=== PATIENT | female | born 1950 | race Caucasian/White ===

== ENCOUNTER 2017-04-06 05:50 | Day surgery (SDC) | payer MEDICARE, BC ==
[2017-04-06] MEDS ORDERED: fentaNYL 100 MCG/2 ML SDV IV ONE (05:51)
[2017-04-06] MEDS ORDERED: Midazolam 1 MG/ML 2 ML SDV IV ONE (05:51)
[2017-04-06] MEDS ORDERED: ePHEDrine 50 MG/ML SDV IV ONE (05:51)
[2017-04-06] MEDS ORDERED: Propofol 200 MG/20 ML SDV IV ONE (05:51)
[2017-04-06] MEDS ORDERED: Dexamethasone 4 MG/ML SDV IV ONE (05:51)
[2017-04-06] MEDS ORDERED: Ketorolac 30 MG/ML SDV IVPUSH ONE (05:51)
[2017-04-06] MEDS ORDERED: Bupivacaine 0.5% 10 ML SDV INJECT ONE ×3 (05:51→09:23)
[2017-04-06] MEDS ORDERED: Ondansetron 4 MG/2 ML SDV IV ONE (05:51)
[2017-04-06] MEDS ORDERED: Lidocaine 1% 30 ML SDV INJECT ONE ×3 (05:51→09:23)
[2017-04-06] MEDS ORDERED: Sodium Chloride 0.9% 10 ML Syringe FLUSH PRN ×2 (06:30)
[2017-04-06] MEDS ORDERED: ceFAZolin 1 GM in Premix Bag 1 BAG IV ONE (06:30)
[2017-04-06] MEDS ORDERED: Lactated Ringers 1,000 ML IV SCH (06:30)
[2017-04-06] MEDS ORDERED: Bupivacaine 0.5% 10 ML SDV ONE (06:55)
[2017-04-06] MEDS ORDERED: Lidocaine 1% 30 ML SDV ONE (06:55)
[2017-04-06] MEDS ORDERED: Midazolam 1 MG/ML 2 ML SDV ONE (06:58)
[2017-04-06] MEDS ORDERED: Dexamethasone 4 MG/ML SDV ONE (06:58)
[2017-04-06] MEDS ORDERED: Ketorolac 30 MG/ML SDV ONE (06:58)
[2017-04-06] MEDS ORDERED: Propofol 200 MG/20 ML SDV ONE (06:58)
[2017-04-06] MEDS ORDERED: Ondansetron 4 MG/2 ML SDV ONE (06:58)
[2017-04-06] MEDS ORDERED: fentaNYL 100 MCG/2 ML SDV ONE ×2 (06:58→07:14)
[2017-04-06] MEDS ORDERED: Acetaminophen/oxyCODONE 325-5 MG Tab PO PRN (09:48)
--- NOTE | 2017-04-06 09:52 | PCM.OPNOTE ---
- General Post-Op/Procedure Note Date of Surgery/Procedure: 04/06/17 Operative Procedure(s): right foot 1st MTPJ arthrodesis Pre Op Diagnosis: right foot hallux varus Post-Op Diagnosis: hilda with arthritis Anesthesia Technique: General LMA Secondary Surgeon: Marilou Dennis Anesthesia Provider: Jose Plaza EBL in mLs: 5 Complications: none Condition: Good Free Text/Narrative:: Pt tolerated procedure well and was transported to recovery with vascular status intact to right foot. TT 102 mins. lakeisha 3.0 cannulated screws at fusion site. Well padded L&U splint applied.
--- NOTE | 2017-04-06 21:36 | OR ---
DATE: 04/06/2017 PREOPERATIVE DIAGNOSIS: Right foot painful hallux varus deformity. POSTOPERATIVE DIAGNOSIS: Right foot painful hallux varus deformity. PROCEDURE PERFORMED: Right foot 1st metatarsophalangeal joint arthrodesis. ANESTHESIA: General LMA with preoperative local block of 10 mL of 1:1 mixture of 1% lidocaine plain and 0.5% Marcaine plain. TOURNIQUET TIME: 102 minutes with pneumatic ankle tourniquet. ESTIMATED BLOOD LOSS: Minimal. SPECIMEN: None. COMPLICATIONS: None. INDICATIONS: Soledad is a 67-year-old, female, who returns for right great toe pain and deformity. I have seen her a few different times now for this issue. We have tried carbon graphite inserts in her shoe to help stabilize that joint, she does wear these in a regular tennis shoe and it helps some. However, she is still having pain. She does get pain to that toe joint and feels a pop in and out when she is walking. It is now starting to spread to the rest of her forefoot, where she also gets some swelling. We have also tried an injection into that joint which helped for approximately 6 weeks. X-rays of the right foot weightbearing views reveal a hallux varus deformity with the hallux partially subluxed medially with a varus angulation of approximately 24 degrees. Some mild spurring at the dorsal aspect of the joint. The patient voiced good understanding of the proposed procedure and possible complications and elects to have surgery at this time. We did discuss soft tissue procedure versus arthrodesis if needed and she agrees to both procedures as needed. DESCRIPTION OF THE PROCEDURE: The patient was taken to the operating room, lying in the supine position. After adequate anesthesia induction as described above, the right foot was prepped and draped in the usual sterile fashion. A pneumatic ankle tourniquet was inflated to 225 mmHg. Attention was then directed to the dorsal aspect of the 1st metatarsophalangeal joint, where an approximately 5 cm linear incision was made overlying the joint. Sharp and blunt dissection were performed down to the level of the joint capsule with care to retract all neurovascular bundles. A linear capsulotomy was made and the capsule was sharply and bluntly dissected free from its attachments to the distal 1st metatarsal and base of the proximal phalanx. At this point, the joint was examined and there was noted to be significant amount of cartilaginous defect at the medial aspect where that joint was popping out. I did try to hold that toe in a neutral position on the great toe joint and simulated weightbearing, and there was only approximately 10 degrees of range of motion when I did this. It was determined at that time that an arthrodesis was needed for this varus deformity. All articular cartilage was then removed from the 1st metatarsal head and the base of the proximal phalanx using a bur and a curette. The joint was then drilled with a 0.062 inch K-wire to subchondral bone as well as an osteotome was used to fenestrate to help with the fusion. The hallux was then positioned on the 1st metatarsal head while loading the foot and temporary fixation was used using a 0.062 inch K-wire. Fluoroscopy was then used to verify proper positioning of the hallux on the 1st metatarsal with the proper amount of valgus angulation as well as approximately 15 to 20 degrees of dorsiflexion. Two 3.0 [place] cannulated screws were then inserted in a crossing fashion across the joint. The temporary fixation was removed and it was noted that the hallux was in near anatomic alignment and in stable fashion with axial and varus forces applied. Fluoroscopy was then again used to verify proper positioning of the screws as well as the hallux. The area was then irrigated with copious amounts of sterile saline. Capsular closure was completed with 3-0 Vicryl and skin closure was completed with 4-0 nylon. The area was then dressed with Xeroform to the incision site, fluffs, Webril, and a well-padded L and U splint with the foot in neutral was applied. The patient tolerated the procedure and anesthesia well and left the operating room for recovery with vital signs stable in good condition with vascular status intact to the right foot as noted by immediate hyperemia to all digits upon deflation of the ankle tourniquet. The patient was then discharged to home when she met hospital discharge requirements. [facility] /[id number]
== END 2017-04-06 11:20 | disposition home or self-care (01) ==
LOC: DL.SDS 05:50
PROVIDERS: ATTEND Podiatrist
DX: M20.11 Hallux valgus (acquired), right foot (principal); E03.9 Hypothyroidism, unspecified; Z79.899 Other long term (current) drug therapy; Z98.890 Other specified postprocedural states
CPT/HCPCS: 01480; 28750; C1713; J0690; J1100; J1885; J2250; J2405; J2704; J3010; J7120

== ENCOUNTER → 2017-10-12 | Day surgery (SDC) | payer MEDICARE, BC ==
[~2017-10-12] MED LIST: Bupivacaine 0.5% 30 ML SDV INJECT ONE; Bupivacaine 0.5% 30 ML SDV ONE; Dexamethasone 4 MG/ML SDV IV ONE; Ketorolac 30 MG/ML SDV IVPUSH ONE; Lactated Ringers 1,000 ML IV SCH; Lidocaine 1% 30 ML SDV INJECT ONE; Lidocaine 1% 30 ML SDV ONE; Midazolam 1 MG/ML 2 ML SDV IV ONE; Ondansetron 4 MG/2 ML SDV IV ONE; Propofol 200 MG/20 ML SDV IV ONE; Sodium Chloride 0.9% 10 ML Syringe FLUSH PRN; ceFAZolin 1 GM in Premix Bag 1 BAG IV ONE; fentaNYL 100 MCG/2 ML SDV IV ONE
--- NOTE | 2017-10-12 16:17 | PCM.OPNOTE ---
- General Post-Op/Procedure Note Date of Surgery/Procedure: 10/12/17 Operative Procedure(s): Right foot hardware removal with 1st MTPJ non union revision and bone graft placement Pre Op Diagnosis: Right foot painful hardware with non union 1st MTPJ Post-Op Diagnosis: hilda Anesthesia Technique: Local, MAC Primary Surgeon: Marilou Dennis Anesthesia Provider: Jose Plaza EBL in mLs: 10 Complications: none Condition: Good Free Text/Narrative:: Intake & Output 10/12/17 10/12/17 10/12/17 06:59 14:59 22:59 Intake Total 720 Balance 720 Pt tolerated procedure well and was transported to recovery with vascular status intact to right foot. lakeisha 3.5 locking and non locking screw with 1st MTPJ pre-bent plate applied with toe in slight dorsiflexion with bone allograft applied to joint and joint defect. Well padded L&U splint applied with foot in neutral. Pt to be NWB in splint.
--- NOTE | 2017-10-13 16:04 | OR ---
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 ANESTHESIA: Local MAC with preoperative local block of 10 mL of 1:1 mixture of 1% lidocaine plain with 0.5% Marcaine plain. TOURNIQUET TIME: 110 minutes of pneumatic ankle tourniquet. ESTIMATED BLOOD LOSS: Minimal. SPECIMEN: None. COMPLICATIONS: None. INDICATIONS: Soledad is a 67-year-old female who is over 6 months status post right foot 1st metatarsophalangeal joint fusion, date of surgery is April 06, 2017. I had not seen her since her 1st postoperative visit, where she was doing very well, she was wearing the CAM boot and not using her crutches at that time. States she was walking on her heel only. She did transition herself back into regular shoes. She states she really has not been having much pain; however, she does have tenderness to that joint area and it always seems hot. It is causing her to limp and seems causing some balance issues as well. X-rays, three-views, of the right foot reveal 2 screws to the 1st MTPJ with lucency around the screws and some movement of the screws since postoperative images, there is a lucent defect in the bone at the area where the screws are crossing and the toe looks like it has lost some of its position. The patient voiced good understanding of proposed procedure and possible complications and elects to have surgery at this time. DESCRIPTION OF PROCEDURE: The patient was taken to the operating room, lying in supine position. After adequate anesthesia induction as described above, the right foot was prepped and draped in the usual sterile fashion. A pneumatic ankle tourniquet was inflated to 225 mmHg. Attention was then directed to the right foot dorsal 1st metatarsophalangeal joint where an approximately 6 cm linear incision was made. Sharp and blunt dissection were made down to the level of the joint capsule with all neurovascular bundles identified and retracted. A linear capsulotomy was made and the capsule was sharply dissected from the 1st metatarsophalangeal joint. The joint was visualized and a nonunion was present in this area. Inflamed tissue was also present to this area and it was debrided. The screws were removed at this time. The joint was opened and all nonunion/fibrotic tissue was removed from the joint. There was noted to be a large defect at both head of the 1st metatarsal and the base of the proximal phalanx, which was also filled with fibrotic tissue, this was cleaned out with a curette and rongeur. The 1st metatarsophalangeal joint was then again curettaged to good bleeding bone. A K-wire was used to fenestrate both the metatarsal head and the proximal phalanx base to good bleeding bone. The hallux was then positioned while loading the foot and a temporary fixation was placed using a 0.062 inch K-wire. Fluoroscopy was used to verify proper positioning of the hallux on the 1st metatarsal with a proper amount of dorsiflexion. The bone graft was then applied to the 1st metatarsal phalangeal joint through the defect at the top of the area and was contacted in. A Veacon Picacho plate was placed onto the 1st metatarsophalangeal joint, this was prebent and it fit onto the area exactly. Temporary fixation was used to hold the plate in place and a nonlocking screw was applied to the distal aspect of the plate. A 2nd nonlocking screw was then applied to the proximal aspect of the plate and then the temporary fixation was removed. The rest of the screw holes were filled with locking screws. The fluoroscopy was then again used to ensure proper position of the plate and screws as well as proper positioning of the hallux, this was done with the foot loaded, simulated weightbearing, the hallux was also checked with the simulated weightbearing and the distal hallux was noted to hit the weightbearing device and appeared to be in good positioning with the simulated weightbearing. The area was then irrigated with copious amounts of sterile saline. Capsular closure was completed with 3-0 Vicryl and skin closure was completed with 4-0 nylon. The area was dressed with Xeroform to the incision site, fluffs, Webril, and a well-padded L and U splint with the foot in neutral position. The patient tolerated the procedure and anesthesia well and left the operating room for recovery with vital signs stable in good condition with vascular status intact to the right foot as noted by immediate hyperemia upon deflation of the ankle tourniquet. She was discharged home when she met hospital discharge requirements. [facility] /[id number]
== END ==
LOC: DL.SDS 05:23
PROVIDERS: ATTEND Podiatrist
DX: M96.0 Pseudarthrosis after fusion or arthrodesis (principal); T84.223A Displacement of internal fixation device of bones of foot and toes, initial encounter; T84.84XA Pain due to internal orthopedic prosthetic devices, implants and grafts, initial encounter; E66.9 Obesity, unspecified; H91.90 Unspecified hearing loss, unspecified ear; E07.9 Disorder of thyroid, unspecified; Z79.899 Other long term (current) drug therapy
CPT/HCPCS: 01470; 28750; J0690; J1100; J1885; J2250; J2405; J2704; J3010; J7120